=== PATIENT | female | born 2000 | race African-American/Black ===

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

== ENCOUNTER 2019-02-07 14:42 | Emergency (ER) | payer MEDICARE ==
[~2019-02-07] VITALS: Ht 170.2 cm; Wt 62.7 kg
[~2019-02-07 14:42] MED LIST: DICLOFENAC SODI50 MG PO; SEIZURE MEDS
[2019-02-07 15:02] VITALS: Ht 170.2 cm; Wt 62.7 kg
[2019-02-07 15:25] LABS: BASOPHILS 0.2 % (0-2); EOSINOPHILS 0.4 % (0-7); HEMATOCRIT 36.3 % (36.0-48.0); HEMOGLOBIN 12.1 g/dL (12-16); IMMATURE GRANULOCYTES 0.3 % (0-5); LYMPHOCYTES 13.4 % (15-50); MCH 23.7 pg (26.0-34.0); MCHC 33.3 g/dL (31.0-37.0); MCV 71.2 fL (80.0-100.0); MEAN PLATELET VOLUME 9.6 fL (7.4-10.4); MONOCYTES 5.4 % (2-11); NEUTROPHILS 80.3 % (40-80); PLATELET COUNT 360 10x3/uL (130-400); RDW 16.7 % (11.5-14.5); WBC 19.2 10x3/uL (4.8-10.8)
[2019-02-07 15:36] LABS: CALC OSMOLALITY 271 mosm/kg (275-300); CALCIUM 9.2 mg/dL (8.5-10.1); CARBON DIOXIDE 23.7 mmol/L (21.0-32.0); CHLORIDE - SERUM 105 mmol/L (98-107); CREATININE - SERUM 1.1 mg/dL (0.6-1.3); GLUCOSE 90 mg/dL (74-106); POTASSIUM - SERUM 3.7 mmol/L (3.5-5.1); SODIUM 137 mmol/L (136-145); UREA NITROGEN 7 mg/dL (7-18); eGFR NON AFRICAN AMERICAN 68 mL/min (90-120)
[2019-02-07 15:40] LABS: APTT 32.9 SECONDS (22.8-39.4)
[2019-02-07 15:42] LABS: INR 1.07 (0.85-1.17); PROTIME 13.4 SECONDS (11.6-15.0)
[2019-02-07 15:55] LABS: ALKALINE PHOSPHATASE 73 U/L (46-116); ALT (SGPT) 14 U/L (10-68); BILIRUBIN - TOTAL 0.27 mg/dL (0.2-1.3); CREATINE KINASE 55 UL (21-215); MAGNESIUM - SERUM 1.9 mg/dL (1.8-2.4); PROTEIN - SERUM 8.2 g/dL (6.4-8.2)
[2019-02-07 15:58] LABS: TROPONIN-I < 0.017 ng/mL (0.000-0.060)
[2019-02-07 16:53] LABS: APPEARANCE HAZY (CLEAR); BILIRUBIN NEGATIVE (NEGATIVE); COLOR YELLOW (YELLOW); GLUCOSE NEGATIVE (NEGATIVE); KETONE NEGATIVE (NEGATIVE); NITRITE NEGATIVE (NEGATIVE); PROTEIN NEGATIVE (NEGATIVE); UROBILINOGEN NORMAL (NORMAL)
[2019-02-07 16:54] LABS: BACTERIA MODERATE /hpf (NEGATIVE); EPITHELIAL CELLS 0-5 /hpf (0-5); RED CELLS - URINE 0-5 /hpf (0-5); WHITE CELLS - URINE 0-5 /hpf (NEGATIVE)
[2019-02-07] MEDS ORDERED: VIBRAMYCIN 100100 MG PO (17:43)
[2019-02-07] MEDS ORDERED: TYLENOL W/CODEI1 TAB PO (17:43)
[2019-02-07 18:50] VITALS: BP 128/78
== END 2019-02-07 18:52 | disposition home or self-care (01) ==
LOC: D.ER 14:42
PROVIDERS: Family Medicine
DX: R07.89 Other chest pain (principal); R05 Cough; R01.1 Cardiac murmur, unspecified

== ENCOUNTER 2019-02-15 17:23 | Emergency (ER) | payer MEDICARE ==
[~2019-02-15] VITALS: Ht 170.2 cm; Wt 68.2 kg
[~2019-02-15 17:23] MED LIST changes: +TYLENOL W/CODEI1 TAB PO; +VIBRAMYCIN 100100 MG PO
[2019-02-15 17:40] VITALS: BP 135/84; Ht 170.2 cm; Wt 68.2 kg
== END 2019-02-15 18:13 | disposition home or self-care (01) ==
LOC: D.ER 17:23
DX: Z00.8 Encounter for other general examination (principal); R01.1 Cardiac murmur, unspecified

== ENCOUNTER 2019-11-21 13:00 | Outpatient (CLI) | payer MEDICARE ==
[2019-02-15 17:40] VITALS: BMI 23.5
== END 2019-11-21 23:59 | disposition home or self-care (01) ==
LOC: D.US 13:00
PROVIDERS: ATTEND Obstetrics & Gynecology
DX: N63.21 Unspecified lump in the left breast, upper outer quadrant (principal)

== ENCOUNTER 2020-05-20 04:33 | Inpatient (IN) | payer BC ==
[~2020-05-20] VITALS: Ht 170.2 cm; Wt 78.2 kg
[2020-05-20 04:49] LABS: BASOPHILS 0.1 % (0-2); EOSINOPHILS 0.3 % (0-7); HEMATOCRIT 31.1 % (36.0-48.0); HEMOGLOBIN 10.3 g/dL (12-16); LYMPHOCYTE ABS# 2.31 10x3/uL (1.18-3.74); LYMPHOCYTES 15.7 % (15-50); MCHC 33.1 g/dL (31.0-37.0); MCV 69.4 fL (80.0-100.0); MONOCYTES 6.7 % (2-11); NEUTROPHIL ABS# 11.24 10x3/uL (1.56-6.13); NEUTROPHILS 76.2 % (40-80); PLATELET COUNT 354 10x3/uL (130-400); RBC 4.48 10x6/uL (4.00-5.40); RDW 15.3 % (11.5-14.5); WBC 14.7 10x3/uL (4.8-10.8)
--- NOTE | 2020-05-20 04:50 | NUR ---
FHT 120-125. REPORT CALLED TO LABOR AND DELIVERY. TRANSPORTED TO L&D VIA STRETCHER PER RN
[2020-05-20 05:04] LABS: CALC OSMOLALITY 264 mosm/kg (275-300); CARBON DIOXIDE 18.6 mmol/L (21.0-32.0); CHLORIDE - SERUM 105 mmol/L (98-107); CREATININE - SERUM 0.6 mg/dL (0.6-1.3); GLUCOSE 88 mg/dL (74-106); POTASSIUM - SERUM 3.8 mmol/L (3.5-5.1); SODIUM 134 mmol/L (136-145); UREA NITROGEN 6 mg/dL (7-18); eGFR NON AFRICAN AMERICAN > 90 mL/min (90-120)
[2020-05-20 05:15] LABS: ALBUMIN 2.7 g/dL (3.4-5.0); ALKALINE PHOSPHATASE 116 U/L (30-120); ALT (SGPT) 13 U/L (10-68); BILIRUBIN - TOTAL 0.21 mg/dL (0.2-1.3); CREATINE KINASE 86 UL (21-215)
[2020-05-20 06:49] LABS: BACTERIA FEW HPF (NONE SEEN); BILIRUBIN NEGATIVE (NEGATIVE); KETONE NEGATIVE (NEGATIVE); NITRITE NEGATIVE (NEGATIVE); SQUAMOUS EPITHELIAL 0-5 HPF (0-4); UROBILINOGEN NORMAL mg/dL (< 2); WHITE CELLS - URINE 0-5 HPF (0-4)
[2020-05-20 07:35] LABS: UDS - AMPHET NEGATIVE QUAL (NEGATIVE); UDS - BARB NEGATIVE QUAL (NEGATIVE); UDS - BENZO NEGATIVE QUAL (NEGATIVE); UDS - COCAINE NEGATIVE QUAL (NEGATIVE); UDS - OPIATE NEGATIVE QUAL (NEGATIVE); UDS - PCP NEGATIVE QUAL (NEGATIVE); UDS - THC NEGATIVE QUAL (NEGATIVE)
[2020-05-20] MEDS ORDERED: PRENAVITE1 TAB PO (08:29)
[2020-05-20 08:42] VITALS: BP 144/85; Ht 170.2 cm; Wt 78.2 kg
--- NOTE | 2020-05-20 19:10 | NUR ---
RECEIVED SHIFT REPORT FROM HOWARD YANES RN
[2020-05-20 19:30] VITALS: BP 120/75
--- NOTE | 2020-05-20 19:30 | NUR ---
ASSESSMENT PER FLOW SHEET, VS OBTAINED, IV IN RIGHT WRIST INTACT WITH NO REDNESS OR EDEMA INFUSING VIA PUMP FLUIDS PER MD ORDERS, SEE EMAR, FF, ML, U/2, JAIRON CARE DONE WITH WET WARM WASH CLOTHS, SMALL BLEEDING NOTED WITH NO CLOTS, CHUX AND JAIRNO PAD CHANGED, PT DENIES FLATUS, VALDEZ CATH INTACT DRAINING LIGHT YELLOW URINE, PT DENIES NEEDS OR PAIN, INFORMED PT THAT I WILL EITHER CHANGE HER BED OUT FROM A LABOR BED TO A REGULAR BED OR TRANSFER HER TO ANOTHER ROOM, PT VERBALIZES UNDERSTANDING, DENIES NEEDS AT THIS TIME
[2020-05-20 20:30] VITALS: BP 142/94
--- NOTE | 2020-05-20 20:30 | NUR ---
MAG CHECK DONE, PT TRANSFERRED VIA PER THIS RN AND CONNIE CONRAD, RN TO ROOM [id number], PT TO BED, PT REQUESTED AND SERVED APPLE JUICE, PT ORIENTED TO BED IN LOW POSITION, SIDE RAILS X 2, CALL LIGHT IN REACH
[2020-05-20 21:30] VITALS: BP 137/94
--- NOTE | 2020-05-20 21:30 | NUR ---
MAG CHECK DONE, PT DENIES NEEDS OR PAIN AT THIS TIME
--- NOTE | 2020-05-20 21:57 | NUR ---
ADM CYTOTEC PO PER MD ORDERS, SEE EMAR
--- NOTE | 2020-05-20 22:07 | NUR ---
DR BANUELOS ON UNIT, ORDERS RECEIVED FOR LABETOLOL 100MG BID, CALL IF BP IS 140/90 AND OUTPUT IS LESS THAN 50ML/HR
--- NOTE | 2020-05-20 22:07 | NUR ---
DR BANUELOS ON UNIT, EVALUATES BP'S, ORDERS TO CALL IF BP 160/100 AND OUTPUT LESS THAN 50ML/HR, ORDERS READ BACK AND VERIFIED
[2020-05-20 22:30] VITALS: BP 131/89
--- NOTE | 2020-05-20 22:30 | NUR ---
MAG CHECK DONE, PT REQUESTED AND SERVED APPLE JUICE, NEW BAG OF 1/2NS HUNG PER MD ORDERS, SEE EMAR, PT REQUESTED TO GET SOME REST, INFANT BACK TO NSY VIA OPEN CRIB CART PER L&D NURSE
[2020-05-20 23:30] VITALS: BP 127/79
--- NOTE | 2020-05-20 23:30 | NUR ---
PT RESTING WITH EYES CLOSED, AROUSES TO SOFT VERBAL STIMULATION, VS CONTINUE, JAIRON CARE DONE WITH WET WARM WASH CLOTHS, SMALL BLEEDING NOTED WITH NO CLOTS, ICE PACK TO PERINIUM, GOWN CHANGED, PT INST ON AND DEMONSTRATED I.S. WITH GOOD EFFORT, PT DENIES NEEDS OR PAIN
[2020-05-21] VITALS (8 sets, daily range): BP systolic 101–132; BP diastolic 57–82
--- NOTE | 2020-05-21 00:30 | NUR ---
PT AWAKE, LAB JUST LEFT ROOM, MAG CHECK DONE, PT INST ON AND USED I.S. AT THIS TIME, PT DENIES NEEDS OR PAIN
--- NOTE | 2020-05-21 01:30 | NUR ---
MAG CHECK DONE, PT DENIES NEEDS OR PAIN
--- NOTE | 2020-05-21 02:30 | NUR ---
PT RESTING WITH EYES CLOSED, AROUSES TO SOFT VERBAL STIMULATION, MAG CHECK DONE, PT DENIES NEEDS OR PAIN AT THIS TIME
--- NOTE | 2020-05-21 03:30 | NUR ---
MAG CHECK PER CONNIE CONRAD RN
--- NOTE | 2020-05-21 04:00 | NUR ---
INFANT SWADDLED AND PLACED IN OPEN CRIB AT BEDSIDE PER MOTHERS REQUEST. NO FURTHER NEEDS IDENTIFIED. BEDSIDE TABLE AND CALL ALCARAZ IN REACH. WILL CONTINUE TO MONITOR
--- NOTE | 2020-05-21 04:30 | NUR ---
MAG CHECK PER CONNIE CONRAD RN
--- NOTE | 2020-05-21 05:30 | NUR ---
PT RESTING, AROUSES TO OPENING OF DOOR, MAG CHECK DONE, JAIRON CARE DONE WITH WET WARM WASH CLOTH, SMALL BLEEDING NOTED WITH NO CLOTS, JAIRON PAD CHANGED, PT DENIES NEEDS OR PAIN AT THIS TIME, INFANT IN OPEN CRIB CART AT BEDSIDE
[2020-05-21 06:11] LABS: RAPID PLASMA REAGIN Non Reactive (Non Reactive)
--- NOTE | 2020-05-21 06:30 | NUR ---
PT RESTING, MAG CHECK DONE, DENIES NEEDS OR PAIN AT THIS TIME, IN OPEN CRIB CART AT BEDSIDE
--- NOTE | 2020-05-21 07:30 | NUR ---
AM ASSESSMENT COMPLETED CHARTED TO FLOWSHEET. FUNDUS FIRM AT U/U WITH LIGHT BLEEDING NOTED WITHOUT CLOTS. RATES PAIN AT 0/10 AT THIS TIME AND IS FEEDING INFANT. DR FONTANA TO BEDSIDE, REVIEWS PT OVERNIGHT BLOOD PRESSURE AND URINE OUTPUT, ORDERS RECEIVED TO DISCONTINUE MAG SULFATE AND MAY ADVANCE PLAN OF CARE.
--- NOTE | 2020-05-21 08:01 | NUR ---
MAGNESIUM SULFATE STOPPED, IV SALINE LOCKED. PT SITTING UP EATING BREAKFAST AND WILL CALL WHEN FINISHED SO THAT VALDEZ CATH CAN BE REMOVED.
[2020-05-21 08:25] LABS: BASOPHILS 0.1 % (0-2); EOSINOPHILS 0.2 % (0-7); HEMATOCRIT 25.9 % (36.0-48.0); HEMOGLOBIN 8.8 g/dL (12-16); IMMATURE GRANULOCYTES 0.3 % (0-5); LYMPHOCYTE ABS# 2.59 10x3/uL (1.18-3.74); LYMPHOCYTES 13.7 % (15-50); MCH 23.1 pg (26.0-34.0); MEAN PLATELET VOLUME 10.2 fL (7.4-10.4); NEUTROPHIL ABS# 14.91 10x3/uL (1.56-6.13); NEUTROPHILS 78.7 % (40-80); PLATELET COUNT 342 10x3/uL (130-400); RBC 3.81 10x6/uL (4.00-5.40); RDW 15.4 % (11.5-14.5)
[2020-05-21 08:26] LABS: WBC 18.9 10x3/uL (4.8-10.8)
--- NOTE | 2020-05-21 09:30 | NUR ---
PT CALLS OUT FOR NURSE. THIS RN TO BEDSIDE, VALDEZ CATHN REMOVED INTACT WITH TOTAL OUTPUT OF 1100ML CLEAR URINE. PT UP TO BATHROOM WITH NO ASSISTANCE NEEDED, UNABLE TO VOID AT THIS TIME. JAIRON CARE PER SELF WITH WARM WET WASH CLOTHS, JAIRON PADS, MESH BRIEFS AND GOWN CHANGED. LARGE APPLE JUICE WITH ICE REQUESTED. PT UNDERSTANDS TO CALL IF ASSISTANCE IS NEEDED TO GET UP TO BATHROOM, INFANT IN CRIB AT BEDSIDE. CALL LIGHT IN REACH.
--- NOTE | 2020-05-21 10:45 | NUR ---
PT UP TO VOID, SHE VOIDS 300ML CLEAR URINE WITHOUT COMPLAINT. DENIES PAIN OR DISCOMFORT AND HAS NO NEEDS AT THIS TIME.
[2020-05-21] MEDS ORDERED: LAMICTAL25 MG PO (12:06)
--- NOTE | 2020-05-21 12:40 | NUR ---
PT CALLS OUT ASKING TO GET IN TO THE SHOWER, UNDERSTANDS THAT WILL BE A MOMENT BEFORE NURSE CAN HELP WITH THIS.
--- NOTE | 2020-05-21 14:05 | NUR ---
RATES PAIN AT 3/10 C/O CRAMPING AND UPPER BACK ACHE. MOTRIN GIVEN SCANNED TO EMAR. PT STATES UNDERSTANDING THAT WOULD BE BROUGHT TO ROOM AFTER PEDI ASSESSMENT COMPLETED.
--- NOTE | 2020-05-21 15:01 | NUR ---
OUT OF SHOWER AND DRESSED, RATES PAIN AT 0/10 AT THIS TIME. DENIES NEEDS
--- NOTE | 2020-05-21 16:59 | NUR ---
RATES PAIN AT 0/10, IN CRIB AT BEDSIDE, PT SITTING UP EATING AT THIS TIME. CALL LIGHT IN REACH.
--- NOTE | 2020-05-21 19:14 | NUR ---
SHIFT ASSESSMENT COMPLETED AT THIS TIME. PATIENT SITTING UP IN BED HOLDING . NO NEEDS IDENTIFIED. SIDE RAILS REMAIN UP AND PADDED FOR SEIZURE PRECAUTIONS, BED LOCKED IN LOW POSITION, CALL ALCARAZ AND TRAY TABLE IN REACH. WILL CONTINUE TO MONITOR.
--- NOTE | 2020-05-21 21:35 | NUR ---
PATIENT SITTING UP IN BED HOLDING INFANT. MEDICATIONS ADMINISTERED PER MD ORDERS, SEE EMAR.
--- NOTE | 2020-05-21 23:00 | NUR ---
PATIENT SITTING UP IN BED HOLDING INFANT. DENIES NEEDS AT THIS TIME. WILL CONTINUE TO MONITOR.
--- NOTE | 2020-05-22 01:17 | NUR ---
NURSERY NURSE TO ROOM TO GET , NO NEEDS IDENTIFIED.
--- NOTE | 2020-05-22 03:01 | NUR ---
PT SLEEPING WITH EVEN RESPIRATIONS, NO DISTRESS NOTED.
--- NOTE | 2020-05-22 05:36 | NUR ---
PATIENT LYING IN BED WITH EYES OPEN, INFANT IN ARMS. NO NEEDS IDENTIFIED. BED REMAINS LOCKED IN LOW POSITION, SIDERAILS PADDED FOR SEIZURE PRECAUTIONS AND CALL ALCARAZ AND TRAY TABLE IN REACH.
[2020-05-22 05:58] LABS: BASOPHILS 0.2 % (0-2); HEMATOCRIT 22.3 % (36.0-48.0); IMMATURE GRANULOCYTES 0.5 % (0-5); LYMPHOCYTE ABS# 3.13 10x3/uL (1.18-3.74); LYMPHOCYTES 21.2 % (15-50); MCH 22.7 pg (26.0-34.0); MCHC 32.7 g/dL (31.0-37.0); MCV 69.5 fL (80.0-100.0); MEAN PLATELET VOLUME 10.1 fL (7.4-10.4); NEUTROPHIL ABS# 10.34 10x3/uL (1.56-6.13); NEUTROPHILS 70.1 % (40-80); PLATELET COUNT 299 10x3/uL (130-400); RBC 3.21 10x6/uL (4.00-5.40); RDW 15.4 % (11.5-14.5); WBC 14.8 10x3/uL (4.8-10.8)
[2020-05-22 06:36] LABS: HEMOGLOBIN 7.3 g/dL (12-16)
--- NOTE | 2020-05-22 06:48 | NUR ---
DR POWERS PAGED WITH CRITICAL LAB VALUE. STATES THAT HE IS ON HIS WAY UP HERE AND HE WILL LOOK AT IT.
--- NOTE | 2020-05-22 07:00 | NUR ---
REPORT TO AM SHIFT TO ASSUME PT CARE
[2020-05-22 07:35] VITALS: BP 132/81
--- NOTE | 2020-05-22 07:35 | NUR ---
PATIENT ASSESSMENT COMPLETED AT BEDSIDE. PATIENT COMPLAINS OF PAIN 2/10 AT PERINAL AREA. FUNDUS FIRM AND 2 BELOW UMBILICIUS. BLEEDING SCANT TO LIGHT. PATIENT DENIES ADDITIONAL NEEDS AT THIS TIME. VSS. PATIENT UPDATED ON PLAN OF CARE AT BEDSIDE. SIDE RAILS UP X 2, BED IN LOW POSITION, CALL LIGHT WITHIN REACH.
[2020-05-22 08:13] LABS: BASOPHILS 0.2 % (0-2); HEMATOCRIT 24.3 % (36.0-48.0); HEMOGLOBIN 7.9 g/dL (12-16); IMMATURE GRANULOCYTES 0.4 % (0-5); LYMPHOCYTE ABS# 2.39 10x3/uL (1.18-3.74); LYMPHOCYTES 14.6 % (15-50); MCH 22.8 pg (26.0-34.0); MCHC 32.5 g/dL (31.0-37.0); MEAN PLATELET VOLUME 9.6 fL (7.4-10.4); MONOCYTES 4.9 % (2-11); NEUTROPHIL ABS# 12.88 10x3/uL (1.56-6.13); NEUTROPHILS 78.9 % (40-80); PLATELET COUNT 304 10x3/uL (130-400); RBC 3.47 10x6/uL (4.00-5.40); RDW 15.7 % (11.5-14.5); WBC 16.3 10x3/uL (4.8-10.8)
--- NOTE | 2020-05-22 09:00 | NUR ---
DR. POWERS NOTIFIED OF CBC RESULTS. PLAN OF CARE DISCUSSED. IF PATIENT FEELS FINE TO GO HOME DUE TO STABLE CBC, THEN PATIENT CAN DISCHARGE HOME PER DR. LORENZ.
--- NOTE | 2020-05-22 17:26 | NUR ---
PATIENT TO BE DISCHARGED HOME IN STABLE CONDITION. DISCHARGE PAPERWORK GIVEN INCLUDING WHEN TO SCHEDULE A FOLLOW UP APPOINTMENT. PAITNET VERBALIZED UNDERSTANDING OF INFORMATION GIVEN. PATIENT DENIES QUESTIONS OR CONCERNS WITH INFORMATION PROVIDED.
== END 2020-05-22 17:00 | disposition home or self-care (01) | DRG 807 ==
LOC: D.ER 04:33 → D.LDO 04:33 → EDSTATUS 05:10 → D.LD 07:00
PROVIDERS: Family Medicine; Obstetrics & Gynecology; ADMIT Obstetrics & Gynecology; ATTEND Obstetrics & Gynecology
PROC: 10E0XZZ Delivery of Products of Conception, External Approach (ICD-10-PCS; principal; 2020-05-20)
DX: O14.94 Unspecified pre-eclampsia, complicating childbirth (principal); Z37.0 Single live birth; Z3A.37 37 weeks gestation of pregnancy

== ENCOUNTER 2020-05-26 17:38 | Emergency (ER) | payer BC ==
[~2020-05-26] VITALS: Ht 170.2 cm; Wt 75.9 kg
[~2020-05-26 17:38] MED LIST changes: +LAMICTAL25 MG PO; +PRENAVITE1 TAB PO
[2020-05-26 17:42] VITALS: Ht 170.2 cm; Wt 75.9 kg
[2020-05-26 18:53] LABS: BILIRUBIN NEGATIVE (NEGATIVE); KETONE NEGATIVE (NEGATIVE); NITRITE NEGATIVE (NEGATIVE); UROBILINOGEN NORMAL mg/dL (< 2)
[2020-05-26 18:56] LABS: BACTERIA FEW HPF (NONE SEEN); BASOPHILS 0.3 % (0-2); EOSINOPHILS 2.8 % (0-7); HEMATOCRIT 25.3 % (36.0-48.0); HEMOGLOBIN 8.1 g/dL (12-16); IMMATURE GRANULOCYTES 0.4 % (0-5); LYMPHOCYTE ABS# 2.45 10x3/uL (1.18-3.74); LYMPHOCYTES 23.9 % (15-50); MCH 22.6 pg (26.0-34.0); MCV 70.7 fL (80.0-100.0); MEAN PLATELET VOLUME 9.3 fL (7.4-10.4); MONOCYTES 6.7 % (2-11); NEUTROPHIL ABS# 6.75 10x3/uL (1.56-6.13); NEUTROPHILS 65.9 % (40-80); PLATELET COUNT 414 10x3/uL (130-400); RBC 3.58 10x6/uL (4.00-5.40); RDW 15.7 % (11.5-14.5); SQUAMOUS EPITHELIAL 0-5 HPF (0-4); WBC 10.3 10x3/uL (4.8-10.8); WHITE CELLS - URINE 0-5 HPF (0-4)
[2020-05-26 19:05] LABS: CALC OSMOLALITY 271 mosm/kg (275-300); CARBON DIOXIDE 25.3 mmol/L (21.0-32.0); CHLORIDE - SERUM 105 mmol/L (98-107); CREATININE - SERUM 0.7 mg/dL (0.6-1.3); GLUCOSE 92 mg/dL (74-106); SODIUM 137 mmol/L (136-145); UREA NITROGEN 7 mg/dL (7-18); eGFR NON AFRICAN AMERICAN > 90 mL/min (90-120)
[2020-05-26 19:11] LABS: ALBUMIN 2.9 g/dL (3.4-5.0); ALKALINE PHOSPHATASE 102 U/L (30-120); ALT (SGPT) 37 U/L (10-68); BILIRUBIN - TOTAL 0.15 mg/dL (0.2-1.3); MAGNESIUM - SERUM 1.9 mg/dL (1.8-2.4); PROTEIN - SERUM 7.2 g/dL (6.4-8.2)
[2020-05-26] MEDS ORDERED: PROCARDIA XL60 MG PO (19:28)
[2020-05-26 20:04] VITALS: BP 146/102
== END 2020-05-26 20:04 | disposition home or self-care (01) ==
LOC: D.ER 17:38
PROVIDERS: Family Medicine
DX: O16.5 Unspecified maternal hypertension, complicating the puerperium (principal)